=== PATIENT | female | born 1990 ===

== ENCOUNTER 2016-09-28 17:01 | Emergency (ER) | payer MEDICAID, OTHER ==
[2016-09-28] MEDS ORDERED: Sodium Chloride 0.9% 1,000 ML IV ONE (17:38)
[2016-09-28] MEDS ORDERED: Sodium Chloride 0.9% 1,000 ML ONE (17:55)
[2016-09-28 17:59] LABS: ALBUMIN 4.5 g/dL (3.5-5.0)
[2016-09-28 18:00] LABS: BASO % 0.4 % (0.0-2.0); EOS % 0.4 % (0.0-4.0); HEMOGLOBIN 13.4 g/dL (11.0-16.0); LYMPH # 2.1 K/uL (1.0-4.3); LYMPH % 18.6 % (20.0-40.0); MEAN CELL VOLUME 94.1 fL (81.0-99.0); MEAN CORPUSCULAR HEMOGLOBIN 31.6 pg (27.0-31.0); MEAN CORPUSCULAR HGB CONC 33.6 g/dL (33.0-37.0); MEAN PLATELET VOLUME 8.5 fL (7.2-11.7); MONO # 0.6 K/uL (0.0-0.8); MONO % 5.3 % (0.0-10.0); NEUT # 8.4 K/uL (1.8-7.0); NEUT % 75.3 % (50.0-75.0); RBC 4.24 Mil/uL (3.80-5.20); RED CELL DISTRIBUTION WIDTH 13.9 % (11.5-14.5); WHITE BLOOD COUNT 11.2 K/uL (4.8-10.8)
[2016-09-28 18:02] LABS: ALB/GLOB RATIO 1.3 (1.0-2.1); AST/SGOT 23 U/L (14-36); BLOOD UREA NITROGEN 9 mg/dL (7-17); GFR AFRICAN-AMERICAN > 60; GFR NON-AFRICAN AMERICAN > 60
[2016-09-28 18:03] LABS: ALT/SGPT 16 U/L (9-52); CALCIUM 9.6 mg/dl (8.6-10.4)
--- NOTE | 2016-09-28 18:08 | RAD ---
HISTORY: Overdosed COMPARISON: None available TECHNIQUE: Chest, one view. FINDINGS: LUNGS: No focal consolidation. Please note that chest x-ray has limited sensitivity for the detection of pulmonary masses. PLEURA: No significant pleural effusion identified. No definite pneumothorax . CARDIOVASCULAR: The cardiomediastinal silhouette appears within normal limits of size. OSSEOUS STRUCTURES: Scoliosis convex to the right. VISUALIZED UPPER ABDOMEN: Unremarkable. OTHER FINDINGS: Bilateral nipple rings. Multiple external cardiac monitoring leads. IMPRESSION: No focal consolidation, significant pleural effusion, or definite pneumothorax identified.
--- NOTE | 2016-09-28 18:09 | C.PDOC ---
History Of Present Illness 26-year-old female, presents to the emergency department with complaints of unknown pill ingestion, two hours prior to arrival. Patient is unsure of what they were, and reports they were taken by mistake. Mother states she is concerned that pills were taken as a suicide attempt. Associated symptoms include nausea and non-bloody/non-bilious vomiting. No other complaints at this time. Time Seen by Provider: 09/28/16 17:33 Chief Complaint (Nursing): Ingestion, Accidental History Per: Patient, Family History/Exam Limitations: no limitations Onset/Duration Of Symptoms: Hrs Current Symptoms Are (Timing): Still Present Severity: Moderate Past Medical History Reviewed: Historical Data, Nursing Documentation, Vital Signs Vital Signs: Last Vital Signs Temp 98.3 F 09/28/16 20:45 Pulse 61 09/28/16 20:45 Resp 18 09/28/16 20:45 BP 93/67 L 09/28/16 20:45 Pulse Ox 100 09/28/16 21:52 - Medical History PMH: Depression Family History: States: No Known Family Hx - Social History Hx Alcohol Use: Yes Hx Substance Use: No Review Of Systems Except As Marked, All Systems Reviewed And Found Negative. Constitutional: Negative for: Fever Cardiovascular: Negative for: Chest Pain, Palpitations Respiratory: Negative for: Shortness of Breath Gastrointestinal: Positive for: Nausea, Vomiting Psych: Negative for: Suicidal ideation (Questionable) Physical Exam - Physical Exam Appears: Non-toxic, No Acute Distress Skin: Warm, Dry, No Rash Head: Atraumatic, Normacephalic Eye(s): bilateral: Normal Inspection, PERRL Nose: Normal Oral Mucosa: Moist Lips: Normal Appearing Neck: Normal ROM Cardiovascular: Rhythm Regular, No Murmur Respiratory: Normal Breath Sounds, No Accessory Muscle Use Gastrointestinal/Abdominal: Soft, No Tenderness Extremity: Normal ROM Neurological/Psych: Oriented x3, Normal Speech ED Course And Treatment - Laboratory Results Result Diagrams: 09/28/16 17:47 09/28/16 17:47 O2 Sat by Pulse Oximetry: 100 Medical Decision Making Medical Decision Making: ?sucide attempt. r/o toxidrome. labs imaging pending 700: mother and pt now states pt took somnapure. discussed with poson control. advise supportive management. 840: pt states feels well. pt seen by knockdown worker. cleared by crisis. Disposition - Disposition Disposition: HOME/ ROUTINE Disposition Time: 20:39 Condition: STABLE Additional Instructions: please follow up with your doctor and as directed by knockdown worker. return to er with worsening symptoms or concerns. Instructions: Adult Overdose (ED) - Clinical Impression Clinical Impression: Drug ingestion - Scribe Statement The provider has reviewed the documentation as recorded by the Scribe (Shu Booth) All medical record entries made by the Scribe were at my direction and personally dictated by me. I have reviewed the chart and agree that the record accurately reflects my personal performance of the history, physical exam, medical decision making, and the department course for this patient. I have also personally directed, reviewed, and agree with the discharge instructions and disposition.
[2016-09-28 18:13] LABS: SALICYLATE < 1.0 mg/dL 1
[2016-09-28 18:15] LABS: ACETAMINOPHEN < 10.0 ug/mL (10.0-30.0)
[2016-09-28] MEDS ORDERED: Potassium Chloride 20 mEq ER Tab PO STA (18:30)
[2016-09-28] MEDS ORDERED: Potassium Chloride 20 mEq ER Tab PO ONE (18:41)
[2016-09-28 19:19] LABS: HCG,QUALITATIVE URINE NEGATIVE (NEGATIVE)
[2016-09-28 19:30] LABS: BARBITURATES, UR NEGATIVE (NEGATIVE); BENZODIAZEPINES, UR NEGATIVE (NEGATIVE)
[2016-09-28 19:31] LABS: SQUAMOUS EPITHIAL 15 /hpf (0-5); URINE BACTERIA RARE (<OCC); URINE BILIRUBIN NEGATIVE (NEGATIVE); URINE BLOOD 1+ (NEGATIVE); URINE CLARITY Hazy (Clear); URINE COLOR Yellow (YELLOW); URINE GLUCOSE (UA) NORMAL (Normal); URINE LEUKOCYTE ESTERASE NEG Leu/uL (Negative); URINE NITRATE NEGATIVE (NEGATIVE); URINE PROTEIN NEGATIVE (NEGATIVE); URINE UROBILINOGEN NORMAL mg/dL (0.2-1.0)
[2016-09-28 19:34] LABS: OPIATES, UR NEGATIVE (NEGATIVE); PHENCYCLIDINE, UR NEGATIVE (NEGATIVE)
[2016-09-28 20:47] VITALS: PULSE 61; RESP 18; TEMP 98.3
[2016-09-28 20:56] VITALS: BP 93/67; O2SAT 100
--- NOTE | 2016-09-29 17:09 | CARD ---
APPROVED REPORT EKG Measurement Heart [id number] <Conclusion> Normal sinus rhythm with sinus arrhythmia Normal ECG
== END 2016-09-28 20:54 | disposition home or self-care (01) ==
LOC: C.ER 17:01
DX: T50.991A Poisoning by other drugs, medicaments and biological substances, accidental (unintentional), initial encounter (principal); E87.6 Hypokalemia
CPT/HCPCS: 71010; 80053; 80320; 80324; 80329; 80345; 80346; 80349; 80353; 80358; 80361; 81001; 83992; 84703; 85025; 93005; 96361; 96374; 99285; J2405; J7040